=== PATIENT | female | born 1990 | race African-American/Black ===

== ENCOUNTER 2023-04-16 07:36 | Emergency (ER) | payer BC, MEDICAID ==
[2023-04-16] MEDS ORDERED: diphenhydrAMINE 50 MG/ML VIAL ONE (08:32)
[2023-04-16] MEDS ORDERED: Prochlorperazine 10 MG/2 ML VIAL ONE (08:32)
[2023-04-16] MEDS ORDERED: Ketorolac Tromethamine 30 MG (1 mL) VIAL ONE (08:32)
[2023-04-16 08:43] LABS: #Eosinphils 0.1 10x3/uL (0.0-0.5); #Monocytes 0.7 10x3/uL (0.0-1.1); #Neutrophils 4.2 10x3/uL (1.5-8.4); %Basophils 0.4 % (0.0-2.0); %Eosinophils 1.6 % (0.0-6.0); %Lymphocytes 24.3 % (18.0-47.0); %Neutrophils 62.6 % (40.0-75.0); Hematocrit 39.9 % (34.9-44.5); Hemoglobin 12.3 g/dL (12.0-15.5); Mean Corpuscular HGB CONC 30.8 g/dL (32.0-36.0); Mean Corpuscular Hemoglobin 26.9 pg (27.0-33.0); Mean Corpuscular Volume 87.3 fl (81.6-98.3); Mean Platelet Volume 11.9 fl (7.4-10.4); Platelet Count 218 10x3/uL (150-450); RBC Distribution Width 14.2 % (11.5-14.5); Red Blood Cell (RBC) Count 4.57 10x6/uL (3.90-5.03); White Blood Cell (WBC) Count 6.8 10x3/uL (3.5-10.5)
[2023-04-16 08:56] LABS: Troponin I 0.011 ng/mL (< 0.028)
[2023-04-16 09:17] LABS: ALT (SGPT) 35 U/L (8-55); AST (SGOT) 16 U/L (5-34); Albumin 4.1 g/dL (3.5-5.0); Alkaline Phosphatase 71 U/L (40-110); Anion Gap 14 mmol/L (10-20); BUN (Urea Nitrogen) 8 mg/dL (7.0-18.7); Calc. Creatinine Clearance 0 mL/min (70-130); Calcium 9.4 mg/dL (7.8-10.44); Carbon Dioxide 27 mmol/L (22-29); Chloride 103 mmol/L (98-107); Estimated GFR 94; Globulin 3.5 g/dL (2.4-3.5); Glucose 107 mg/dL (70-105); Potassium 3.8 mmol/L (3.5-5.1); Protein, Total 7.6 g/dL (6.0-8.3); Sodium 140 mmol/L (136-145)
== END 2023-04-16 09:48 | disposition home or self-care (01) ==
LOC: EEVIPCON 07:36 → CSHERS 07:36
DX: G43.919 Migraine, unspecified, intractable, without status migrainosus (principal); I10 Essential (primary) hypertension; Z79.899 Other long term (current) drug therapy
CPT/HCPCS: 80053; 84484; 85025; 93005; 96361; 96374; 96375; J0780; J1200; J1885

== ENCOUNTER 2023-06-09 09:55 | Emergency (ER) | payer BC, MEDICAID ==
[2023-06-09] MEDS ORDERED: Metoclopramide HCl 10 MG (2 mL) VIAL ONE (11:24)
[2023-06-09] MEDS ORDERED: Ketorolac Tromethamine 30 MG (1 mL) VIAL ONE (11:24)
[2023-06-09 11:43] LABS: Influenza A by NAA Not Detected (NotDetected); Influenza B by NAA Not Detected (NotDetected); SARS-CoV-2 NAA Rapid Test Not Detected (NotDetected)
[2023-06-09 12:00] LABS: #Monocytes 0.8 10x3/uL (0.0-1.1); %Basophils 0.4 % (0.0-2.0); %Eosinophils 0.2 % (0.0-6.0); %Lymphocytes 19.1 % (18.0-47.0); %Monocytes 16.5 % (0.0-10.0); %Neutrophils 63.6 % (40.0-75.0); Hematocrit 36.3 % (34.9-44.5); Hemoglobin 11.3 g/dL (12.0-15.5); Mean Corpuscular HGB CONC 31.1 g/dL (32.0-36.0); Mean Corpuscular Hemoglobin 27.1 pg (27.0-33.0); Mean Corpuscular Volume 87.1 fl (81.6-98.3); Mean Platelet Volume 11.2 fl (7.4-10.4); Platelet Count 185 10x3/uL (150-450); RBC Distribution Width 14.3 % (11.5-14.5); Red Blood Cell (RBC) Count 4.17 10x6/uL (3.90-5.03); White Blood Cell (WBC) Count 4.7 10x3/uL (3.5-10.5)
[2023-06-09 12:08] LABS: BHCG - Serum Negative (NEGATIVE); Pregs Control Background? CLEAR/WHITE (CLR/WHITE); Pregs Control Bar Appear? YES (CONTROL BAR)
[2023-06-09 12:20] LABS: ALT (SGPT) 13 U/L (8-55); AST (SGOT) 17 U/L (5-34); Albumin 3.8 g/dL (3.5-5.0); Alkaline Phosphatase 73 U/L (40-110); Anion Gap 9 mmol/L (10-20); BUN (Urea Nitrogen) 6 mg/dL (7.0-18.7); Bilirubin, Total 0.8 mg/dL (0.2-1.2); Calc. Creatinine Clearance 0 mL/min (70-130); Calcium 8.8 mg/dL (7.8-10.44); Carbon Dioxide 27 mmol/L (22-29); Chloride 108 mmol/L (98-107); Estimated GFR 90; Globulin 3.2 g/dL (2.4-3.5); Glucose 88 mg/dL (70-105); Potassium 3.9 mmol/L (3.5-5.1); Sodium 140 mmol/L (136-145)
== END 2023-06-09 13:00 | disposition home or self-care (01) ==
LOC: EEVIPCON 09:55 → CSHERS 09:55
DX: G43.909 Migraine, unspecified, not intractable, without status migrainosus (principal); B34.9 Viral infection, unspecified
CPT/HCPCS: 36415; 80053; 84703; 85025; 96365; 96375; J1885; J2765

== ENCOUNTER 2023-09-11 10:47 | Emergency (ER) | payer BC ==
[2023-09-11] MEDS ORDERED: diphenhydrAMINE 50 MG/ML VIAL ONE (11:50)
[2023-09-11] MEDS ORDERED: Metoclopramide HCl 10 MG (2 mL) VIAL ONE (11:50)
[2023-09-11] MEDS ORDERED: Ondansetron PF 4 MG/2 ML Vial ONE (11:50)
[2023-09-11] MEDS ORDERED: Dexamethasone 10 MG/ML VIAL ONE (13:44)
== END 2023-09-11 14:30 | disposition home or self-care (01) ==
LOC: CSHERS 10:47
DX: R51.9 Headache, unspecified (principal); I10 Essential (primary) hypertension
CPT/HCPCS: 96365; 96366; 96375; J1100; J1200; J2405; J2765